=== PATIENT | male | born 1960 | race Caucasian/White ===

== ENCOUNTER → 2016-08-18 | Outpatient (CLI) | payer OTHER ==
[2016-08-18 07:26] LABS: CALCIUM 8.6 mg/dL (8.5-10.1); CREATININE 0.7 mg/dL (0.7-1.3); GFR 117.1; POTASSIUM 3.7 mmol/L (3.5-5.1)
[2016-08-19 05:13] LABS: HEMOGLOBIN A1C 5.3 % (4.8-5.6)
== END | disposition home or self-care (01) ==
LOC: LAB 06:52
PROVIDERS: ATTEND Specialist
DX: E78.2 Mixed hyperlipidemia (principal); R73.01 Impaired fasting glucose
CPT/HCPCS: 36415; 80048; 80061; 83036

== ENCOUNTER → 2017-04-20 | Outpatient (CLI) | payer OTHER ==
[2017-04-20 07:10] LABS: CALCIUM 8.7 mg/dL (8.5-10.1); CREATININE 0.7 mg/dL (0.7-1.3); GFR 117.1; POTASSIUM 3.4 mmol/L (3.5-5.1)
[2017-04-20 21:08] LABS: HEMOGLOBIN A1C 5.1 % (4.8-5.6)
== END | disposition home or self-care (01) ==
LOC: LAB 04-19 06:59
PROVIDERS: ATTEND Specialist
DX: Z12.5 Encounter for screening for malignant neoplasm of prostate (principal); I10 Essential (primary) hypertension; E78.2 Mixed hyperlipidemia; R73.01 Impaired fasting glucose
CPT/HCPCS: 36415; 80048; 80061; 83036; G0103

== ENCOUNTER → 2018-06-07 | Outpatient (CLI) | payer OTHER ==
[2018-06-07 06:53] LABS: CALCIUM 8.8 mg/dL (8.5-10.1); CREATININE 0.6 mg/dL (0.7-1.3); GFR 138.9; POTASSIUM 3.5 mmol/L (3.5-5.1)
== END | disposition home or self-care (01) ==
LOC: LAB 06:31
PROVIDERS: ATTEND Specialist
DX: E78.00 Pure hypercholesterolemia, unspecified (principal)
CPT/HCPCS: 36415; 80048; 80061

== ENCOUNTER 2019-04-04 04:49 | Inpatient (IN) | payer OTHER ==
[~2019-04-04] VITALS: Ht 180.3 cm; Wt 88.9 kg
--- NOTE | 2019-04-04 04:52 | PHYS DOC ---
Adult General Chief Complaint Chief Complaint: ".. I went to bed fine.. and woke up with fever, chills.. and my arm on fire... I think maybe I got an spider bite.. a brown recluse.. bite.. I had a really severe response before.. ended up in the hospital almost a week... " HPI HPI Patient is a 58 year old male who presents with above hx and complaints of insect bite. Patient suspects it is a brown recluse bite. Patient has an area approximately 12 x 12 cm left antecubital area that is swollen and red. There is a central airways and appears to be a bite rigoberto. There is no axillary adenopathy. There is no striations. Patient had a brown recluse bite approximately 6-7 years ago which resulted in a week hospitalization. Patient had a severe reaction to the bite. Was first started on outpatient antibiotics but eventually required admission. Patient does have a large area of scar on his right chest wall from the previous brown recluse bite. Patient was moving some carpet yesterday. Patient thinks it's been approximately 6-7 years since last tetanus update Pt. normally follows with Jose Lawrence. Review of Systems Review of Systems Constitutional: Complaints of fever or chills [] Eyes: Denies change in visual acuity, redness, or eye pain [] HENT: Denies nasal congestion or sore throat [] Respiratory: Denies cough or shortness of breath [] Cardiovascular: No additional information not addressed in HPI [] GI: Denies abdominal pain, nausea, vomiting, bloody stools or diarrhea [] : Denies dysuria or hematuria [] Musculoskeletal: Denies back pain or joint pain [] Integument: Denies rash or skin lesions []. Patient has a 12 x 12 cm area of inflammation left antecubital area. Neurologic: Denies headache, focal weakness or sensory changes [] Endocrine: Denies polyuria or polydipsia [] All other systems were reviewed and found to be within normal limits, except as documented in this note. Family History Family History Noncontributory Current Medications Current Medications See nursing for home medications Allergies Allergies No known drug allergies Physical Exam Physical Exam Constitutional: Well developed, well nourished, moderate acute distress, ill in appearance. [Having obvious rigors and chills . Hypotensive, HENT: Normocephalic, atraumatic, bilateral external ears normal, oropharynx moist, no oral exudates, nose normal. [] Eyes: PERRLA, EOMI, conjunctiva normal, no discharge. Glasses Neck: Normal range of motion, no tenderness, supple, no stridor. [] Cardiovascular: Tachycardia Heart rate regular rhythm, no murmur [] Lungs & Thorax: Bilateral breath sounds equal at apex on auscultation []. Large scar right chest wall from previous Brown recluse bite. Abdomen: Bowel sounds normal, soft, no tenderness, no masses, no pulsatile masses. [] Skin: Warm, dry, [] Area which appears to be cellulitis/insect bite-Brown recluse right antecubital space Back: No tenderness, no CVA tenderness. [] Extremities: No tenderness, no cyanosis, no clubbing, ROM intact, no edema. [] Neurologic: Alert and oriented X 3, normal motor function, normal sensory function, no focal deficits noted. [] Psychologic: Affect anxious, judgement normal, mood normal. [] EKG EKG [] Radiology/Procedures Radiology/Procedures [] Course & Med Decision Making Course & Med Decision Making Pertinent Labs and Imaging studies reviewed. (See chart for details) Patient admitted to - for further eval. and tx. Pt. hx of severe reaction to Brown Recluse-, however may be localized cellulitis. Impression: 1. Suspect Brown Recluse Bite Rt anti-cubital area vs localized cellulitis 2. Leukocytosis 13.5 3. Hyponatremia 128 4. Hypokalemia 3.4 5. Fever and Chills 6. Hypotension [] Dragon Disclaimer Dragon Disclaimer This electronic medical record was generated, in whole or in part, using a voice recognition dictation system. Departure Departure: Disposition: 01 HOME/RESIDENCE PRIOR TO ADM Condition: STABLE Referrals: MYRON ALVRAEZ MD (PCP) Shannon Disclaimer This chart was dictated in whole or in part using Voice Recognition software in a busy, high-work load, and often noisy Emergency Department environment. It may contain unintended and wholly unrecognized errors or omissions. ORE VINCENT MD Apr 04, 2019 04:52
[2019-04-04] MEDS ORDERED: IV NORMAL SALINE 50ML 0 ML ONE (05:10)
[2019-04-04] MEDS ORDERED: cefTRIAXone SODIUM 1 GM VIAL ONE ×2 (05:10→06:55)
[2019-04-04] MEDS ORDERED: SMZ/TMP 800/160MG TABLET. PO ONE (05:30)
[2019-04-04 05:46] LABS: BASO # 0.3 x10^3/uL (0.0-0.2); BASO % 3 % (0-3); CALCIUM 8.3 mg/dL (8.5-10.1); CREATININE 0.7 mg/dL (0.7-1.3); EOS % 0 % (0-3); GFR 116.2; HEMATOCRIT 43.4 % (39.0-53.0); HEMOGLOBIN 15.2 g/dL (13.0-17.5); LYMPH # 0.2 x10^3/uL (1.0-4.8); LYMPH % 2 % (24-48); MEAN CORPUSCULAR HEMOGLOBIN 32 pg (25-35); MEAN CORPUSCULAR HGB CONC 35 g/dL (31-37); MEAN CORPUSCULAR VOLUME 90 fL (79-100); MONO # 0.5 x10^3/uL (0.0-1.1); MONO % 3 % (0-9); NEUT # 12.4 x10^3uL (1.8-7.7); NEUT % 92 % (31-73); PLATELET COUNT 145 x10^3/uL (140-400); POTASSIUM 3.4 mmol/L (3.5-5.1); RED BLOOD COUNT 4.83 x10^6/uL (4.30-5.70); RED CELL DISTRIBUTION WIDTH 12.9 % (11.5-14.5); WHITE BLOOD COUNT 13.5 x10^3/uL (4.0-11.0)
[2019-04-04] MEDS ORDERED: DIPHTH,PERTUSS(ACELL),TET TOX 0.5 ML DISP.SYRIN. VAX IM ONE (06:00)
[2019-04-04 06:43] LABS: SEDIMENTATION RATE 8 (0-15)
[2019-04-04] MEDS ORDERED: ONDANSETRON PF 4 MG/2 ML VIAL. IV PRN (06:45)
[2019-04-04] MEDS ORDERED: IV NORMAL SALINE 50ML 50 ML ONE (06:55)
[2019-04-04] MEDS ORDERED: SODIUM BICARBONATE 50 MEQ/50 ML VIAL. ONE (06:58)
[2019-04-04] MEDS ORDERED: IV RINGERS SOLUTION,LACTATED 1,000 ML IV ONE ×3 (07:00→07:15)
[2019-04-04] MEDS ORDERED: SODIUM BICARB ADULT 8.4% 50 MEQ/50 ML DISP.SYRIN. IV ONE (07:00)
[2019-04-04] MEDS: ACETAMINOPHEN 325 MG TABLET PO PRN ×3 (07:31→18:27)
[2019-04-04] MEDS ORDERED: IPRATRPIUM/ALBUTEROL 0.5/2.5MG 3 ML NEBU. NEB SCH (08:00)
[2019-04-04 09:37] VITALS: BP 112/68
[2019-04-04] MEDS ORDERED: CARV25TA2 PO (09:46)
[2019-04-04] MEDS ORDERED: OMEG-117 PO (09:46)
[2019-04-04] MEDS ORDERED: POTA20TA4 PO (09:46)
[2019-04-04] MEDS ORDERED: TRIA1CAP PO (09:46)
--- NOTE | 2019-04-04 09:53 | NUR ---
The patient, BERNICE SUMNER, 58 y/o, M admitted by LESVIA TATUM MD, was given written information regarding hospital policies, unit procedures and contact persons. Valuables were checked and left at bedside. Patient was admitted from ED to [address] [place] [address] with a diagnosis of cellulitis, leukocytosis, and hyponatremia. Patient has cellulitis in RUE, patient stated " i was fine last night, i went to bed and woke up with red on my arm and fever. I was rolling carpet yesterday and i am concerned it's a possible spider bite." Patient has a history of brown recluse spider bite, occurred 6-7 years ago,on right upper abdomen that required 6 weeks of hospitalization and IV antibiotics. Patient has history of High Blood pressure,back surgery also. Patient is an ex smoker, and drinks alcohol daily stating " i drink about 8 beers a day at home." Patient has a 20g in LAC, Rocephin 1 gm IV was administered in ED. Patient was febrile upon arriving with a temp of 102. oral. Patient is alert and oriented x 4, speech is clear, able to make wants and needs known and able to verbalize understanding of others. No negative moods or behaviors observed. Pleasant and cooperative with staff in all cares. Patient abdomen is slightly distended, firm, active bowel sounds in all 4 quadrants. Non obese. Lungs are CTA, RA, respirations are even and unlabored. No cough or SOA present. Skin is appropriate for age and ethinicity, in tact. Patient face appears slightly flushed light red at this time. Patient is up ad sailaja. Patient is resting in room with call light and fresh fluids at this time.
[2019-04-04] MEDS ORDERED: TRIAMTERENE/HCTZ 37.5/25MG TABLET. PO SCH (10:00)
[2019-04-04 10:02] VITALS: BP 112/68
--- NOTE | 2019-04-04 10:43 | NUR ---
Dr. Clements notified of patient's admission. New orders for Vanc per pharm, Zosyn 3.375 g IV Q 8hours, NS bolus 500 ML , NS at 125ml/hour, Banana Bag Q HS , CIWA protocol received.
[2019-04-04] MEDS ORDERED: IV NORMAL SALINE 500ML 500 ML IV ONE (10:45)
[2019-04-04] MEDS: CARVEDILOL 12.5 MG TABLET PO SCH (10:57)
[2019-04-04] MEDS: POTASSIUM CHLORIDE 20 MEQ TABLET.ER. PO SCH (10:58)
[2019-04-04] MEDS: IV NORMAL SALINE 1,000ML 1,000 ML IV SCH ×2 (10:59→18:45)
[2019-04-04] MEDS: PIPERACILLIN/TAZOBACTAM 3.375 GM in IV NORMAL SALINE 50ML 50 ML IV SCH ×2 (11:00→19:29)
[2019-04-04] MEDS ORDERED: PIPERACILLIN/TAZOBACTAM 3.375 GM in IV NORMAL SALINE 50ML 50 ML IV SCH ×4 (11:00)
[2019-04-04] MEDS ORDERED: VANCOMYCIN 2 GM in IV NORMAL SALINE 500ML 500 ML IV ONE (11:30)
[2019-04-04] MEDS: VANCOMYCIN PER PHARMACY MC PRN (12:23)
--- NOTE | 2019-04-04 12:23 | NUR ---
Pharmacy Vancomycin Dosing Note S:Consulted to monitor and dose vancomycin started 04/04/19. O:BERNICE SUMNER is a 58 year old M with Cellulitis, . Height: 5 feet, 10 inches Weight: 89.468922 kg [place] Body Weight: 73.00 Adjusted Body Weight: 79.64 Dosing Weight: Actual Other Antibiotics: ZOSYN LABS: Last BUN: 8 Last Creatinine: 0.7 Creatinine Clearance: 131 Last WBC: 13.5 Last Procalcitonin: Tmax (past 24 hours): Microbiology: I/O: Drug Levels: Last level: on at Last dose given at Vancomycin Dosing: Loading Dose: 2000 mg x1 Dosing Weight: Actual Target Trough: 10-20 A: Based on: PHYSICIAN REQUEST FOR DOSING P: 1. Begin Vancomycin 1250 mg IV q8h 2. Follow up Trough level on 04/05/19 BEFORE 4TH DOSE 3. Pharmacy will continue to monitor, follow and adjust therapy as needed. CLARICE COLIN, 04/04/19 [id number]
--- NOTE | 2019-04-04 13:20 | NUR ---
Notified Dr. Clements via telephone of patient cellulitis spreading up right upper arm. Admission measurments of area of cellulitis located on the right upper arm were 17.5CM L X 14.6 CM, at 12:40 pm measurments increased to 26 CM L X 17 CM W. New order for hydrocodone 5/325 mg PRN Q 4 HOURS FOR pain were received. Dr. Clements stated he would like to see cellulitis in person before changing course of treatment.
[2019-04-04] MEDS: HYDROcodone/APAP 5/325MG 1 TAB TABLET PO PRN ×2 (13:29→18:27)
[2019-04-04 15:33] VITALS: BP 87/52
--- NOTE | 2019-04-04 16:13 | HP ---
ADMIT DATE: 04/04/2019 HISTORY OF PRESENT ILLNESS: The patient is a 58-year-old male patient who came to the Emergency Room complaining that he went to the bed fine but he woke up this morning with fever, chills and his arm on fire. He thinks that he was bit by a spider, particularly a brown recluse, as he has had before severe response when he was bitten by a brown recluse spider on his abdomen and required about a week of treatment in the hospital. When he arrived to the Emergency Room, he has an area of approximately 12 cm on the left antecubital area swollen and red. There is no axillary lymphadenopathy and no striation. He stated that he had a brown recluse bite approximately 6-7 years ago, which resulted in a week hospitalization, has severe reaction to the bite. He does have a large scar on his right chest wall from the previous brown recluse bite. He was actually moving some cardboard yesterday and he thinks that he might have been bitten there. In the Emergency Room, he was febrile. His temperature went up to 103 degrees Fahrenheit, somewhat tachycardic. His face was flushed, but there was no jaundice, cyanosis or thyromegaly. No jugular venous distention. No lower limb edema. He was extensively investigated. His lab work showed he has leukocytosis with a white cell count of 13,500. His chemistry showed mild hyponatremia and hypokalemia and lactic acid was slightly elevated at 2.3. Blood cultures were ordered and he was started on IV vancomycin and Zosyn and initially received trimethoprim-sulfamethoxazole as well as ceftriaxone and was admitted for further evaluation and treatment. PAST MEDICAL HISTORY: Significant for hypertension, hyperlipidemia, and alcoholism. PAST SURGICAL HISTORY: Significant for back surgery as well as colonoscopy. ALLERGIES: He has no known drug allergies. MEDICATIONS: He is currently on following medications: He is on fish oil 1 capsule twice a day, carvedilol 25 mg once a day, potassium chloride 20 mEq daily, triamterene/hydrochlorothiazide 37.5/25 one tablet once a day. FAMILY HISTORY: He has 2 brothers, older and healthy. His father at the age of 89 because of CVA and its complication. Mother at the age of 64 because of the uterine carcinoma. SOCIAL HISTORY: He is , has no children. He does not smoke; however, he drinks about 8 beers a day, he does not use any drugs. He works in the kitchen. REVIEW OF SYSTEMS: The patient denied any blurring of vision, cataract, glaucoma or macular degeneration. Denied any earache, tinnitus or sensorineural deafness. Denied any nosebleeds, stuffy nose, or postnasal drip. Denied any sore throat, sore tongue, toothache, hoarseness of voice or difficulty swallowing. Denied any nausea, vomiting, diarrhea or constipation. Denied any hematemesis, melena or hematochezia. Denied any dysuria, frequency or hematuria. Denied any chest pain, shortness of breath, orthopnea, paroxysmal nocturnal dyspnea. PHYSICAL EXAMINATION: GENERAL: On arrival to the Emergency Room, he was flushed, but there was no pallor, jaundice, cyanosis or thyromegaly. No jugular venous distension. No lower limb edema. VITAL SIGNS: Her heart rate was 118, blood pressure was 114/60, temperature was 99, respiratory rate was 20, and oxygen saturation was 99%. His temperature went up to 103 degrees Fahrenheit. HEAD, EYES, EARS, NOSE AND THROAT: Showed normocephalic, atraumatic. NECK: Supple. HEART: Normal first and second heart sounds. No gallop, rub or murmur. CHEST: Clear to auscultation. No crepitation or rhonchi. ABDOMEN: Distended, soft, nontender. No guarding or rigidity. No organomegaly. All hernial orifice intact. Bowel sounds normal. NEUROLOGICALLY: He was awake, alert, responding appropriately. All cranial nerves intact. EXTREMITIES: He moves extremities without difficulty. He ambulates without assistance or assistive devices. Examination of the face showed it is markedly flushed, has an area of erythema on the right antecubital fossa extending distally and proximally and it has increased in size since admission, although the intensity of the erythema is much less. LABORATORY DATA: His lab work on admission showed serum sodium of 128, potassium 3.4, chloride 91, bicarbonate 23, anion gap of 14, BUN 8, creatinine 0.7, estimated GFR was 116, glucose was 98, lactic acid was 2.3, calcium was 8.3. CK was 121. His white cell count was 13,500, hemoglobin 15, hematocrit 43, MCV 90, and platelet count of 145,000. ASSESSMENT: Right upper extremity cellulitis, questionable brown recluse bite. My plan is to switch him to Zosyn and vancomycin. We will arrange for him a PICC line. Continue treatment. I will discontinue his triamterene/hydrochlorothiazide given his severe hyponatremia, continue obviously with alcohol withdrawal protocol as he is drinking heavily. LESVIA TATUM MD DR: ZULLY/xenia JOB#: [id number] / [id number]
--- NOTE | 2019-04-04 16:21 | NUR ---
Patient temp at 1500 was 101 oral. Acetaminophen administered per order for fever. Cold wash clothes applied to patients forehead and icepacks applied to back of patients neck. Rechecked temperature 30 minutes later, Temp was 99.0 oral.
--- NOTE | 2019-04-04 17:11 | NUR ---
Order Verified Yes Consent signed Yes Previous PICC placement No Past Medical/Surgical history and current diagnosis reviewed Yes Patient Medical /Surgical History Related to PICC line placement None Special considerations for PICC line placement Infections PICC placement indication lobsterman antibiotic usage, Name of PICC Nurse Genoveva Limon RN
--- NOTE | 2019-04-04 17:13 | NUR ---
Procedure: Following complete explanation of the PICC procedure including the indications, risks, and potential complications, informed consent was obtained. The possibility for infection was discussed along with signs, symptoms, and prevention. All the patient's questions were answered. IV Device Protocol was used. Written and verbal patient education was provided. Hand hygiene performed. Standardized central line checklist was utilized. The patient had cellulitis in the right arm so the left arm was used. The patient was placed in the supine position, the left arm was prepped with chlorhexidine and patient draped with maximum sterile barrier. 1 mL 1% lidocaine was infiltrated into the skin to provide local anesthesia. A thorough assessment of the left upper extremity completed. Using real-time ultrasound guidance and standardized micro puncture set, the basilic vein was punctured and a peel away sheath was placed using the modified Seldinger technique. A tip location device was used to ensure adequate catheter placement. The catheter was secured using a securement device and an antimicrobial patch was applied directly on the insertion site followed by a transparent dressing. The purple lumen withdrew blood and flushed without resistance. Patient tolerated the procedure without apparent complication. A single Lumen Power PICC placement successful and uncomplicated. Placement verified by EKG tip confirmation system with green p wave and nohemy observed. Tip located in the low SVC per 3CG Complications: none
--- NOTE | 2019-04-04 18:45 | NUR ---
New order for 600mg Ibuprofen received verbally from Dr. Clements for dx of fever.
[2019-04-04 19:43] VITALS: BP 136/76
[2019-04-04] MEDS: IBUPROFEN 600 MG TABLET. PO PRN (20:04)
[2019-04-04] MEDS: VANCOMYCIN 1.25 GM in IV NORMAL SALINE 250ML 250 ML IV SCH (20:04)
[2019-04-04] MEDS: OMEGA-3 FATTY ACIDS/FISH OIL 1,000 MG CAPSULE. PO SCH (20:04)
[2019-04-04] MEDS: MVI, ADULT NO.4 WITH VIT K 10 ML, FOLIC ACID INJ 1 MG, THIAMINE INJ 100 MG in IV NORMAL... IV SCH ×4 (20:05)
[2019-04-04] MEDS ORDERED: SMZ/TMP 800/160MG TABLET. PO SCH (21:00)
[2019-04-04 22:26] VITALS: BP 136/74
[2019-04-05] MEDS: IV NORMAL SALINE 1,000ML 1,000 ML IV SCH ×2 (02:45→10:45)
[2019-04-05] MEDS: PIPERACILLIN/TAZOBACTAM 3.375 GM in IV NORMAL SALINE 50ML 50 ML IV SCH ×3 (02:55→18:20)
[2019-04-05] MEDS: VANCOMYCIN 1.25 GM in IV NORMAL SALINE 250ML 250 ML IV SCH ×3 (05:00→20:25)
[2019-04-05 05:14] VITALS: BP 145/72
[2019-04-05 07:00] LABS: BASO % 0 % (0-3); EOS # 0.1 x10^3/uL (0.0-0.7); EOS % 1 % (0-3); HEMATOCRIT 38.4 % (39.0-53.0); HEMOGLOBIN 13.3 g/dL (13.0-17.5); LYMPH # 0.1 x10^3/uL (1.0-4.8); LYMPH % 1 % (24-48); MEAN CORPUSCULAR HEMOGLOBIN 32 pg (25-35); MEAN CORPUSCULAR HGB CONC 35 g/dL (31-37); MEAN CORPUSCULAR VOLUME 92 fL (79-100); MONO # 0.3 x10^3/uL (0.0-1.1); MONO % 3 % (0-9); NEUT # 9.7 x10^3uL (1.8-7.7); NEUT % 95 % (31-73); PLATELET COUNT 115 x10^3/uL (140-400); RED CELL DISTRIBUTION WIDTH 13.3 % (11.5-14.5); WHITE BLOOD COUNT 10.3 x10^3/uL (4.0-11.0)
[2019-04-05 07:14] LABS: ALBUMIN 2.8 g/dL (3.4-5.0); ALBUMIN/GLOBULIN RATIO 0.8 (1.0-1.7); CALCIUM 7.4 mg/dL (8.5-10.1); CREATININE 0.8 mg/dL (0.7-1.3); GFR 99.6; TOTAL BILIRUBIN 0.7 mg/dL (0.2-1.0); TOTAL PROTEIN 6.2 g/dL (6.4-8.2)
[2019-04-05 07:24] LABS: POTASSIUM 2.7 mmol/L (3.5-5.1)
[2019-04-05] MEDS: POTASSIUM CHLORIDE 10MEQ 100 ML IV SCH ×4 (07:53→10:30)
[2019-04-05] MEDS: IBUPROFEN 600 MG TABLET. PO PRN ×2 (07:53→20:27)
[2019-04-05] MEDS: POTASSIUM CHLORIDE 20 MEQ TABLET.ER. PO SCH (07:53)
[2019-04-05] MEDS: CARVEDILOL 12.5 MG TABLET PO SCH (07:53)
[2019-04-05] MEDS: OMEGA-3 FATTY ACIDS/FISH OIL 1,000 MG CAPSULE. PO SCH ×2 (07:54→20:26)
[2019-04-05] MEDS ORDERED: CONTRAST GIVEN MC PRN (09:15)
[2019-04-05] MEDS ORDERED: IOHEXOL 300 MG/ML 75 ML VIAL. IV ONE (09:15)
--- NOTE | 2019-04-05 10:25 | RAD ---
Examination: CT right upper extremity with IV contrast HISTORY: History of abscess COMPARISON: None available TECHNIQUE: Axial CT images of the right upper extremity was performed with IV contrast. Coronal and sagittal reformats are performed Exposure: One or more of the following individualized dose reduction techniques were utilized for this examination: 1. Automated exposure control 2. Adjustment of the mA and/or kV according to patient size 3. Use of iterative reconstruction technique FINDINGS: The alignment of the humerus, radius, ulna grossly appears unremarkable. There is diffuse fat stranding identified in the subcutaneous tissue extending from the upper arm medially and extending into the forearm medially anteriorly and posteriorly likely diffuse edema/cellulitis. No obvious focal fluid collection identified to suggest an abscess. IMPRESSION: 1. Diffuse fat stranding identified in the subcutaneous tissue in the upper abdomen extending into the forearm distally likely diffuse edema or cellulitis/infection. Correlate clinically. Electronically signed by: Nando Blanco MD (04/05/2019 10:22 AM) [id number]
--- NOTE | 2019-04-05 10:42 | NUR ---
Dr. Clements notified via telephone of patient's CT results. Continue to monitor at this time, no new orders. Dr. Clements stated he will respond at bedside and consult with I/D to decide further treatment. Patient and patient's made aware.
[2019-04-05 12:49] LABS: VANC TR 10.5 mcg/mL (10.0-20.0)
[2019-04-05] MEDS: HYDROcodone/APAP 5/325MG 1 TAB TABLET PO PRN (13:56)
[2019-04-05] MEDS ORDERED: POTASSIUM CHLORIDE 20 MEQ TABLET.ER. PO ONE (14:00)
[2019-04-05] MEDS: VANCOMYCIN PER PHARMACY MC PRN ×2 (14:06→14:07)
--- NOTE | 2019-04-05 14:08 | NUR ---
Pharmacy Vancomycin Dosing Note S:Consulted to monitor and dose vancomycin started 04/04/19. O:BERNICE SUMNER is a 58 year old M with Cellulitis, . Height: 5 feet, 10 inches Weight: 88.467242 kg [place] Body Weight: 73.00 Adjusted Body Weight: 79.64 Dosing Weight: Actual Other Antibiotics: ZOSYN LABS: Last BUN: 8 Last Creatinine: 0.8 Creatinine Clearance: 114.10 Last WBC: 10.3 Last Procalcitonin: Tmax (past 24 hours): Microbiology: I/O: Drug Levels: Last level: 10.5 on 04/05/19 at 1225 Last dose given at Vancomycin Dosing: Loading Dose: 2000 mg x1 Dosing Weight: Actual Target Trough: 10-20 A: Based on: THE ABOVE THERAPEUTIC THROUGH P: 1. Continue Vancomycin 1250 mg IV q8h 2. Follow up Trough level as needed 3. Pharmacy will continue to monitor, follow and adjust therapy as needed. PIERRE KAYE [facility] [place], 04/05/19 0408
[2019-04-05 14:37] VITALS: BP 143/83
[2019-04-05] MEDS: POTASSIUM CL 40MEQ IN 0.9%NACL 1,000 ML IV SCH (16:51)
[2019-04-05] MEDS: MVI, ADULT NO.4 WITH VIT K 10 ML, FOLIC ACID INJ 1 MG, THIAMINE INJ 100 MG in IV NORMAL... IV SCH ×4 (20:26)
[2019-04-05 21:00] VITALS: BP 163/90
[2019-04-05] MEDS: LACTOBACILLUS RHAMNOSUS GG 1 CAPSULE. PO SCH (21:27)
[2019-04-05 22:46] VITALS: BP 149/79
--- NOTE | 2019-04-06 01:09 | PN ---
DATE: 04/05/2019 PROGRESS NOTE SUBJECTIVE: The patient is resting slightly propped up in bed, in no apparent respiratory distress. He definitely looks better than yesterday. He is just flushed, although slightly more swollen and the area of erythema is slightly bigger. His blood pressure is stable. His white cell count is down. So far, his blood culture showed no growth. PHYSICAL EXAMINATION: GENERAL: When I examined him, he looked well and was clearly in no apparent respiratory distress. No pallor, jaundice, cyanosis, or thyromegaly. No jugular venous distention. No limb edema. VITAL SIGNS: His heart rate was 94, blood pressure was 143/83, temperature 99, respiratory rate was 20, and oxygen saturation was 93% on room air. HEAD, EYES, EARS, NOSE AND THROAT: Showed normocephalic, atraumatic. EXTREMITIES: The examination of the right upper extremity compared to left definitely showed it is more swollen and with erythema mostly on the inner side. LABORATORY DATA: Showed a white cell count 10,000, hemoglobin 13, hematocrit 38, MCV 92, and platelet count ____. His chemistry showed a serum sodium 133, potassium 3.3, chloride 98, bicarbonate 25, anion gap of 10, BUN 6, and creatinine 0.8. ASSESSMENT: 1. Right upper extremity cellulitis. 2. Hypertension, hyperlipidemia ____. Dictation Ends Here. LESVIA TATUM MD DR: ZULLY/xenia JOB#: [id number] / [id number]
[2019-04-06] MEDS: PIPERACILLIN/TAZOBACTAM 3.375 GM in IV NORMAL SALINE 50ML 50 ML IV SCH ×3 (02:46→19:50)
[2019-04-06] MEDS: POTASSIUM CL 40MEQ IN 0.9%NACL 1,000 ML IV SCH (04:20)
[2019-04-06] MEDS: VANCOMYCIN 1.25 GM in IV NORMAL SALINE 250ML 250 ML IV SCH ×3 (04:34→21:05)
[2019-04-06 05:29] VITALS: BP 162/92
[2019-04-06 07:43] LABS: HEMATOCRIT 36.9 % (39.0-53.0); HEMOGLOBIN 12.4 g/dL (13.0-17.5); RED BLOOD COUNT 3.95 x10^6/uL (4.30-5.70); RED CELL DISTRIBUTION WIDTH 13.1 % (11.5-14.5); WHITE BLOOD COUNT 9.7 x10^3/uL (4.0-11.0)
[2019-04-06 07:52] LABS: ALBUMIN 2.6 g/dL (3.4-5.0); ALBUMIN/GLOBULIN RATIO 0.7 (1.0-1.7); CALCIUM 7.7 mg/dL (8.5-10.1); CREATININE 0.7 mg/dL (0.7-1.3); GFR 116.2; TOTAL BILIRUBIN 0.4 mg/dL (0.2-1.0); TOTAL PROTEIN 6.1 g/dL (6.4-8.2)
[2019-04-06] MEDS: LACTOBACILLUS RHAMNOSUS GG 1 CAPSULE. PO SCH ×2 (08:43→19:50)
[2019-04-06] MEDS: POTASSIUM CHLORIDE 20 MEQ TABLET.ER. PO SCH (08:43)
[2019-04-06] MEDS: OMEGA-3 FATTY ACIDS/FISH OIL 1,000 MG CAPSULE. PO SCH ×2 (08:43→19:51)
[2019-04-06] MEDS: CARVEDILOL 12.5 MG TABLET PO SCH (08:43)
[2019-04-06] MEDS ORDERED: POTASSIUM CHLORIDE 20 MEQ TABLET.ER. PO ONE ×2 (08:45→17:00)
[2019-04-06] MEDS: IBUPROFEN 600 MG TABLET. PO PRN (09:39)
[2019-04-06] MEDS: diphenhydrAMINE 50 MG/ML VIAL IVP PRN ×2 (09:39→19:50)
[2019-04-06 10:52] VITALS: BP 165/82
[2019-04-06 15:37] VITALS: BP 172/96
[2019-04-06 16:45] LABS: CREATININE 0.8 mg/dL (0.7-1.3); GFR 99.6; POTASSIUM 3.3 mmol/L (3.5-5.1)
[2019-04-06] MEDS ORDERED: IOHEXOL 300 MG/ML 75 ML VIAL. IV ONE (17:00)
[2019-04-06] MEDS: chlordiazePOXIDE HCL 25 MG CAPSULE PO PRN (17:40)
[2019-04-06 19:21] VITALS: BP 191/104
[2019-04-06] MEDS: HYDROcodone/APAP 5/325MG 1 TAB TABLET PO PRN (19:51)
[2019-04-06 20:27] LABS: VANC TR 12.4 mcg/mL (10.0-20.0)
[2019-04-06 22:27] VITALS: BP 154/54
--- NOTE | 2019-04-06 23:00 | NUR ---
Pt with elevated BP. Pt anxious and had higher CIWA score. Pt refused Ativan, stating that he "felt roofied." but was agreeable to taking Benadryl and Lortab to calm down. Pt's BP recheck was much improved and pt felt relaxed. Pt had repeat CT of right arm done, no new findings. Pt had normal Vanco trough at 12.4.
[2019-04-07] VITALS (7 sets, daily range): BP systolic 143–186; BP diastolic 81–107
--- NOTE | 2019-04-07 01:37 | PN ---
DATE: 04/06/2019 SUBJECTIVE: The patient is resting slightly propped up in bed, in no apparent respiratory distress. He is not flushed anymore. He is afebrile. However, his right upper extremity continued to be swollen. When I examined him, he looked well and was clearly in no apparent respiratory distress. The nursing staff stated that his potassium was low and blood pressure is up higher, like now 172/96. He did not like the Ativan. PHYSICAL EXAMINATION: GENERAL: When I examined him, he looked well. VITAL SIGNS: Her heart rate was 88, blood pressure was 72/96, temperature 98.7, respiratory rate 20, and oxygen saturation was 95% on room air. EXTREMITIES: His right upper extremity is definitely more swollen and red compared to the left. The rest of clinical exam is stable. His intake over the last 24 hours was 3413, no output was recorded. LABORATORY DATA: His lab work this morning showed a white cell count is down to 9700, hemoglobin 12, hematocrit 36, MCV 93, and platelet count of 77,000. His chemistry showed a serum sodium of 136, potassium 3, chloride 101, bicarbonate 24, anion gap of 11, BUN 4, creatinine was 0.7, estimated GFR was 116 mL per minute, his glucose was 99, calcium was 7.7. Total bilirubin, AST, ALT, alkaline phosphatase were normal. Total protein was 6.1, albumin was 2.6. His vancomycin trough level was 10.5. ASSESSMENT: 1. Right upper extremity cellulitis. 2. Hypertension. 3. Hyperlipidemia. 4. Alcoholism. 5. Hypokalemia. 6. Thrombocytopenia. PLAN: I would discontinue his IV fluid and discontinue also the banana bag and start him on oral vitamins and monitor his lab work. We will also arrange for him to have a repeat CT scan of the upper extremity to see if there is any drainable fluid. LESVIA TATUM MD DR: ZULLY/xenia JOB#: [id number] / [id number]
--- NOTE | 2019-04-07 02:29 | RAD ---
CT right upper extremity shoulder to wrist with contrast PQRS statement: CT scans at this facility use dose reduction including either automated exposure control, iterative reconstructions, and /or weight based radiation dosing via mA and kV modification when appropriate to reduce radiation dose to as low as reasonably achievable. Contrast: 75 mL Omnipaque 300 intravenous contrast. HISTORY: Right upper extremity worsening swelling. FINDINGS: Patent contrast enhancement of the vessels. There is expansile circumferential subcutaneous edema throughout the upper extremity from the mid humerus down to the hand with very mild edema at the upper humerus. No rim-enhancing fluid collection or enhancing mass. No intramuscular fluid or fascial fluid or enhancement to suggest myositis or fasciitis. Mild chronic ossicle at the medial humeral epicondyle likely due to chronic tendinitis or an old tendon injury. No fracture or dislocation of the upper extremity at the humerus, radius and ulna. No lytic or sclerotic bone lesion or bone destruction or periosteal reaction to suggest infection. IMPRESSION: Diffuse expansile soft tissue edema. No abscess or mass evident. No acute osseous injury. Electronically signed by: Alejandro Kaiser MD (04/07/2019 2:26 AM) [id number]
[2019-04-07] MEDS: PIPERACILLIN/TAZOBACTAM 3.375 GM in IV NORMAL SALINE 50ML 50 ML IV SCH ×3 (03:13→19:45)
[2019-04-07] MEDS: diphenhydrAMINE 50 MG/ML VIAL IVP PRN (03:13)
[2019-04-07] MEDS: chlordiazePOXIDE HCL 25 MG CAPSULE PO PRN ×3 (03:44→16:08)
[2019-04-07] MEDS: VANCOMYCIN 1.25 GM in IV NORMAL SALINE 250ML 250 ML IV SCH (04:41)
[2019-04-07] MEDS: HYDROcodone/APAP 5/325MG 1 TAB TABLET PO PRN (05:40)
[2019-04-07 07:54] LABS: HEMATOCRIT 35.7 % (39.0-53.0); HEMOGLOBIN 12.1 g/dL (13.0-17.5); RED BLOOD COUNT 3.82 x10^6/uL (4.30-5.70)
[2019-04-07 08:11] LABS: ALBUMIN 2.6 g/dL (3.4-5.0); ALBUMIN/GLOBULIN RATIO 0.7 (1.0-1.7); CALCIUM 7.9 mg/dL (8.5-10.1); CREATININE 0.8 mg/dL (0.7-1.3); GFR 99.6; TOTAL BILIRUBIN 0.7 mg/dL (0.2-1.0); TOTAL PROTEIN 6.5 g/dL (6.4-8.2)
[2019-04-07] MEDS: FOLIC ACID 1 MG TABLET PO SCH (08:29)
[2019-04-07] MEDS: OMEGA-3 FATTY ACIDS/FISH OIL 1,000 MG CAPSULE. PO SCH ×2 (08:29→21:21)
[2019-04-07] MEDS: POTASSIUM CHLORIDE 20 MEQ TABLET.ER. PO SCH ×3 (08:29→21:22)
[2019-04-07] MEDS: CARVEDILOL 12.5 MG TABLET PO SCH (08:29)
[2019-04-07] MEDS: PRENATAL MULTIVITAMIN TABLET. PO SCH (08:30)
[2019-04-07] MEDS: LACTOBACILLUS RHAMNOSUS GG 1 CAPSULE. PO SCH ×2 (08:30→21:21)
[2019-04-07] MEDS: THIAMINE 100 MG TABLET. PO SCH (08:30)
[2019-04-07 09:22] LABS: POTASSIUM 2.9 mmol/L (3.5-5.1)
[2019-04-07] MEDS: POTASSIUM BICARB 20 MEQ EFFERVESCENT TABLET. FT SCH ×2 (09:30→13:30)
[2019-04-07] MEDS ORDERED: POTASSIUM BICARB 20 MEQ EFFERVESCENT TABLET. PEG ONE ×2 (10:15→11:30)
[2019-04-07] MEDS: VANCOMYCIN PER PHARMACY MC PRN (10:41)
--- NOTE | 2019-04-07 10:43 | NUR ---
Pt K+ Level 04/07/19 2.7. Notified Provider of low potassium. Gave 40 mEQu K+ at 0930, will give dose again at [address] orders. Will continue to monitor and assess.
--- NOTE | 2019-04-07 10:46 | NUR ---
Pharmacy Vancomycin Dosing Note S:Consulted to monitor and dose vancomycin started 04/04/19. O:BERNICE SUMNER is a 58 year old M with Cellulitis, . Height: 5 feet, 11 inches Weight: 88.264760 kg [place] Body Weight: 75.30 Adjusted Body Weight: 81.02 Dosing Weight: Actual Other Antibiotics: ZOSYN LABS: Last BUN: 13 Last Creatinine: 0.8 Creatinine Clearance: 114.10 Last WBC: 11.0 Drug Levels: Last level: 12.4 on 04/06/19 at 2030 Last dose given at Vancomycin Dosing: Loading Dose: 2000 mg x1 Dosing Weight: Actual Target Trough: 10-20 A: Based on: Trough P: 1. Continue Vancomycin 1250 mg IV q8h 2. Follow up Trough level as needed 3. Pharmacy will continue to monitor, follow and adjust therapy as needed. RODGER BERMUDEZ, 04/07/19 1046
--- NOTE | 2019-04-07 11:26 | NUR ---
Pt BP at 1100 168/105. Gave Clonidine and Ativan PO as ordered. Will continue to monitor and assess.
--- NOTE | 2019-04-07 13:24 | NUR ---
BP at 1300 143/81, Heart Rate 96. Pt is resting. Will continue to monitor and assess.
[2019-04-07] MEDS ORDERED: LOPERAMIDE 2 MG CAPSULE PO ONE (15:00)
--- NOTE | 2019-04-07 15:22 | PN ---
DATE: 04/07/2019 SUBJECTIVE: The patient is resting slightly propped up in bed, in no apparent distress. On questioning him, he complains of pain only when he tries to bend his right elbow or put pressure on his right arm. Otherwise he has no pain. Unfortunately, the redness and swelling has extended mostly distally. I did a CT scan of the upper extremity, which showed basically again diffuse expansile soft tissue edema. No abscess or mass is evident. No acute osseous injury. He is afebrile. His white cell count is coming down. In fact, his white cell count was 13,500, now 11,000. I did speak with Dr. Thornton, the Infectious Disease specialist who recommended switching his vancomycin to Zyvox and continue for a few more days. His blood cultures are so far negative. PHYSICAL EXAMINATION: GENERAL: When I examined him, he looked well, had no more flushing and there is no pallor, jaundice, cyanosis or thyromegaly. No jugular venous distention. No lower limb edema. VITAL SIGNS: Her heart rate was 81, blood pressure was 140/90, temperature 98.1, respiratory rate was 20 and oxygen saturation was 96%. HEAD, EYES, EARS, NOSE AND THROAT: Normocephalic, atraumatic. NECK: Supple. HEART: Showed normal first and second heart sounds with no gallop or murmur. CHEST: Clear to auscultation. No crepitation or rhonchi. ABDOMEN: Distended, soft, nontender. No guarding or rigidity. No organomegaly. All hernial orifices intact. Bowel sounds normal. NEUROLOGIC: He was sleepy, but arousable. All cranial nerves intact. EXTREMITIES: He moves extremities without difficulty. His right upper extremity is more swollen as compared to the left upper extremity. His intake over the last 24 hours was 6400, no output was recorded. LABORATORY DATA: His lab work this morning showed white cell count of 11,000, hemoglobin 12, hematocrit 35, MCV 93 and platelet count of 94,000. His chemistry showed serum sodium 137, potassium 2.9, chloride 101, bicarbonate 23, anion gap of 13, BUN 4, creatinine 0.8, estimated GFR was 99 mL per minute. His glucose was 91, calcium was 7.9. Total bilirubin, AST, ALT, alkaline phosphatase were normal. Total protein was 6.5, albumin was 2.6. Apparently, the patient had multiple episodes of loose bowel movement and therefore we sent stool for C. diff. ASSESSMENT: Right upper extremity cellulitis with worsening erythema and swelling of the soft tissue. I did speak with Dr. Thornton, who recommended discontinuing vancomycin and starting Zyvox. Hypokalemia, dahl which he is receiving 40 mEq every 3 hours. We will check his potassium again this afternoon and we will continue with IV Zosyn, continue with alcohol withdrawal protocol and we will start him oral vancomycin if Clostridium difficile is positive. LESVIA TATUM MD DR: ZULLY/xenia JOB#: [id number] / [id number]
[2019-04-07 17:11] LABS: CALCIUM 8.5 mg/dL (8.5-10.1); CREATININE 0.8 mg/dL (0.7-1.3); GFR 99.6; POTASSIUM 3.8 mmol/L (3.5-5.1)
[2019-04-07] MEDS: cloNIDine HCL 0.1 MG TABLET PO PRN ×2 (19:45→22:57)
[2019-04-08] MEDS: PIPERACILLIN/TAZOBACTAM 3.375 GM in IV NORMAL SALINE 50ML 50 ML IV SCH ×3 (03:30→19:36)
[2019-04-08] MEDS: cloNIDine HCL 0.1 MG TABLET PO PRN ×2 (03:34→06:10)
[2019-04-08 05:31] VITALS: BP 172/102
[2019-04-08 07:39] VITALS: BP 183/108
--- NOTE | 2019-04-08 07:40 | NUR ---
Pts BP recheck after clonidine still showed patients BP at 183/108. Per nurse who had him yesterday, the librium worked well to help his BP. Trying that and will give his schedule meds to him. Patient is alert and oriented x4, pain only when he bends his arms. No has some sores on his arm that were not there yesterday. States the firey color is better than yesterday, arm is still very swollen. Pt in isolation as we rule out cdiff. RN educated patient on these precautions, c-diff and the change in antibiotics to help infection. Pt verbalized understanding. WCTM.
[2019-04-08] MEDS: chlordiazePOXIDE HCL 25 MG CAPSULE PO PRN ×3 (07:47→19:37)
[2019-04-08] MEDS: POTASSIUM CHLORIDE 20 MEQ TABLET.ER. PO SCH ×3 (08:21→19:37)
[2019-04-08] MEDS: FOLIC ACID 1 MG TABLET PO SCH (08:21)
[2019-04-08] MEDS: CARVEDILOL 12.5 MG TABLET PO SCH ×2 (08:22→19:39)
[2019-04-08] MEDS: OMEGA-3 FATTY ACIDS/FISH OIL 1,000 MG CAPSULE. PO SCH ×2 (08:22→19:37)
[2019-04-08] MEDS: THIAMINE 100 MG TABLET. PO SCH (08:22)
[2019-04-08] MEDS: LACTOBACILLUS RHAMNOSUS GG 1 CAPSULE. PO SCH ×2 (08:22→19:37)
[2019-04-08] MEDS: PRENATAL MULTIVITAMIN TABLET. PO SCH (08:25)
[2019-04-08 10:56] VITALS: BP 166/88
[2019-04-08 14:45] VITALS: BP 167/96
[2019-04-08 14:51] LABS: HEMOGLOBIN 12.3 g/dL (13.0-17.5); RED BLOOD COUNT 3.89 x10^6/uL (4.30-5.70); RED CELL DISTRIBUTION WIDTH 13.5 % (11.5-14.5); WHITE BLOOD COUNT 8.9 x10^3/uL (4.0-11.0)
[2019-04-08 16:13] LABS: CALCIUM 8.4 mg/dL (8.5-10.1)
[2019-04-08 16:16] LABS: ALBUMIN 2.7 g/dL (3.4-5.0); ALBUMIN/GLOBULIN RATIO 0.7 (1.0-1.7); POTASSIUM 3.5 mmol/L (3.5-5.1); TOTAL BILIRUBIN 0.3 mg/dL (0.2-1.0); TOTAL PROTEIN 6.7 g/dL (6.4-8.2)
[2019-04-08 19:39] VITALS: BP 164/89
--- NOTE | 2019-04-08 22:01 | PN ---
DATE: 04/08/2019 SUBJECTIVE: The patient is resting slightly propped up in bed, in no apparent distress. He is afebrile. His blood pressure continued to be somewhat high. The right upper extremity swelling and redness is definitely much improved. PHYSICAL EXAMINATION: GENERAL: When I saw him today, he looked well and was clearly in no apparent respiratory distress. No pallor, jaundice, cyanosis or thyromegaly. No jugular venous distension. No lower limb edema. VITAL SIGNS: His heart rate was 88, blood pressure was 195/100, temperature 98.6, respiratory rate was 18 and oxygen saturation was 97%. HEAD, EYES, EARS, NOSE AND THROAT: Showed normocephalic, atraumatic. NECK: Supple. CARDIAC: Normal first and second heart sounds. No gallop or murmur. CHEST: Clear to auscultation. No crepitation or rhonchi. ABDOMEN: Distended, soft, nontender. No guarding or rigidity. No organomegaly. All hernial orifices intact. Bowel sounds normal. NEUROLOGIC: He was awake, alert, responding appropriately. All cranial nerves intact. He moves extremities without difficulty. He ambulates without assistance or assistive device. EXTREMITIES: His right upper extremity swelling and redness is definitely much improved. ASSESSMENT: 1. Right upper extremity cellulitis. The erythema and swelling has definitely much improved. 2. Hypokalemia, improved. 3. Hypertension, likely the patient is in withdrawal and we need to continue with alcohol withdrawal protocol. 4. Diarrhea for which stool was sent for C. diff toxin, the results were still negative. LESVIA TATUM MD DR: ZULLY/xenia JOB#: [id number] / [id number]
[2019-04-08 22:06] VITALS: BP 161/92
[2019-04-09] MEDS: chlordiazePOXIDE HCL 25 MG CAPSULE PO PRN (01:49)
[2019-04-09] MEDS: cloNIDine HCL 0.1 MG TABLET PO PRN (01:50)
[2019-04-09] MEDS: PIPERACILLIN/TAZOBACTAM 3.375 GM in IV NORMAL SALINE 50ML 50 ML IV SCH ×2 (02:50→11:30)
[2019-04-09 05:45] VITALS: BP 162/87
[2019-04-09] MEDS: FOLIC ACID 1 MG TABLET PO SCH (08:11)
[2019-04-09] MEDS: POTASSIUM CHLORIDE 20 MEQ TABLET.ER. PO SCH ×2 (08:12→13:02)
[2019-04-09] MEDS: PRENATAL MULTIVITAMIN TABLET. PO SCH (08:12)
[2019-04-09] MEDS: OMEGA-3 FATTY ACIDS/FISH OIL 1,000 MG CAPSULE. PO SCH (08:13)
[2019-04-09] MEDS: THIAMINE 100 MG TABLET. PO SCH (08:13)
[2019-04-09] MEDS: CARVEDILOL 12.5 MG TABLET PO SCH (08:13)
[2019-04-09] MEDS: LACTOBACILLUS RHAMNOSUS GG 1 CAPSULE. PO SCH (08:13)
[2019-04-09 09:29] LABS: BASO # 0.1 x10^3/uL (0.0-0.2); BASO % 1 % (0-3); EOS # 0.2 x10^3/uL (0.0-0.7); EOS % 4 % (0-3); HEMATOCRIT 38.3 % (39.0-53.0); HEMOGLOBIN 12.7 g/dL (13.0-17.5); LYMPH # 0.6 x10^3/uL (1.0-4.8); LYMPH % 10 % (24-48); MEAN CORPUSCULAR HEMOGLOBIN 31 pg (25-35); MEAN CORPUSCULAR HGB CONC 33 g/dL (31-37); MEAN CORPUSCULAR VOLUME 94 fL (79-100); MONO # 0.8 x10^3/uL (0.0-1.1); MONO % 12 % (0-9); NEUT # 5.1 x10^3uL (1.8-7.7); NEUT % 74 % (31-73); PLATELET COUNT 138 x10^3/uL (140-400); RED BLOOD COUNT 4.09 x10^6/uL (4.30-5.70); RED CELL DISTRIBUTION WIDTH 13.6 % (11.5-14.5); WHITE BLOOD COUNT 6.8 x10^3/uL (4.0-11.0)
[2019-04-09 09:41] LABS: ALBUMIN 2.8 g/dL (3.4-5.0); ALBUMIN/GLOBULIN RATIO 0.7 (1.0-1.7); CALCIUM 8.2 mg/dL (8.5-10.1); CREATININE 0.9 mg/dL (0.7-1.3); POTASSIUM 3.7 mmol/L (3.5-5.1); TOTAL BILIRUBIN 0.3 mg/dL (0.2-1.0); TOTAL PROTEIN 6.9 g/dL (6.4-8.2)
[2019-04-09 11:18] VITALS: BP 142/86
--- NOTE | 2019-04-09 14:34 | NUR ---
Discharge Note: BERNICE SUMNER [address] Discharge instructions and discharge home medications reviewed with Patient and a copy given. All questions have been answered and understanding verbalized. The following instructions and handouts were given: Cellulitis Discontinued lines and drains: PICC IN LUE D/C PER ORDER. Patient discharged to home with present at bed side during the time of discharge.
--- NOTE | 2019-04-09 19:18 | DS ---
DATE OF DISCHARGE: HOSPITAL COURSE: The patient is a 58-year-old male patient, who was admitted with redness and swelling on the inner aspect of right antecubital fossa and that has progressed. He felt that he has spider bite; however, he did not see anyone and we treated him with IV vancomycin and Zosyn initially. As his swelling and redness has worsened, we discussed the presentation with Dr. Thornton, who recommended discontinuing vancomycin and starting Zyvox and he did actually well. The swelling is subsiding as well as the erythema; however, he has what looks like a petechial rash on the inner aspect of the right forearm. Although, his platelet count actually is recovering, ____ was trending down to about 77 from 145 and they have recovered back today to 138. Obviously, his blood pressure was high, probably is a manifestation of alcohol withdrawal, as he drinks about 8 cans of beer every day. We did treat him with a banana bag and alcohol withdrawal protocol and has remained hemodynamically stable. His white cell count came down steadily from 13,500 to down to 6800. A decision was made to discharge him home to continue treatment with the oral Zyvox and clindamycin. While in the hospital, he did develop diarrhea, but his stool for C. diff was negative. PHYSICAL EXAMINATION: GENERAL: When I saw him today, he was sitting on the edge of the bed comfortably in no apparent distress. No pallor, jaundice, cyanosis, or thyromegaly. No jugular venous distension. No limb edema. VITAL SIGNS: His heart rate was 78, the blood pressure of 142/86, temperature of 97.8, respiratory rate 20, and his oxygen saturation was 86% on room air. HEAD, EYES, EARS, NOSE, AND THROAT: Showed normocephalic and atraumatic. NECK: Supple. HEART: Showed normal first and second heart sounds. No gallop or murmur. CHEST: Clear to auscultation. No crepitation or rhonchi. ABDOMEN: Distended, soft, and nontender. NEUROLOGIC: He was awake, alert, and responding appropriately. All cranial nerves are intact. He moves extremities without difficulty. His right upper extremity continued to be slightly more swollen than the left with area of what looks like petechiae on the medial aspect. His intake over the last 24 hours was 2313 and output was recorded ____. LABORATORY WORK: Showed the white cell count of 6800, hemoglobin 12.7, hematocrit 38, MCV 94, and platelet count of 138,000. Serum sodium is 135, potassium is 3.7, chloride 104, bicarbonate 25, anion gap of 6, BUN 7, and creatinine 0.9. Estimated GFR was 87 mL per minute. His glucose was 146 and calcium was 8.2. Total bilirubin, AST, ALT, and alkaline phosphatase were normal. Total protein was 6.9 and albumin was 2.8. DISCHARGE MEDICATIONS: The patient will be discharged home to continue on carvedilol 25 mg once a day, omega-3 fatty acids 1 capsule twice a day, potassium chloride 20 mEq daily, triamterene/hydrochlorothiazide 37.5/25 one capsule once a day. He will be discharged also on Zyvox 600 mg twice a day for 5 days and clindamycin at 300 mg 4 times a day for 5 days. FINAL DISCHARGE DIAGNOSES: Cellulitis of the right upper extremity, hypokalemia, hypertension, and alcohol withdrawal. LESVIA TATUM MD DR: ZULLY/xenia JOB#: [id number] / [id number]
== END 2019-04-09 15:18 | disposition home or self-care (01) | DRG 603 ==
LOC: ER 04:49 → 1 SOUTH 08:42
PROVIDERS: ADMIT Internal Medicine; ATTEND Internal Medicine
DX: L03.113 Cellulitis of right upper limb (principal); E87.1 Hypo-osmolality and hyponatremia; F10.239 Alcohol dependence with withdrawal, unspecified; T63.391A Toxic effect of venom of other spider, accidental (unintentional), initial encounter; D69.6 Thrombocytopenia, unspecified; E78.5 Hyperlipidemia, unspecified; E87.6 Hypokalemia; I10 Essential (primary) hypertension; Z82.3 Family history of stroke; Y92.89 Other specified places as the place of occurrence of the external cause
CPT/HCPCS: 36415; 36569; 73201; 80048; 80053; 80202; 82550; 83605; 84132; 85025; 85027; 85651; 87040; 87493; 90471; 90715; 96361; 96365; 96366; J0696; J1200; J2020; J2060; J2405; J2543; J3370; J3480; J7040; J7050; J7120; Q9967; 99285-25; J7030

== ENCOUNTER → 2019-10-17 | Outpatient (CLI) | payer OTHER ==
[~2019-10-17] MED LIST: CARV25TA2 PO; OMEG-117 PO; POTA20TA4 PO; TRIA1CAP PO
== END | disposition home or self-care (01) ==
LOC: LAB 13:59
PROVIDERS: ATTEND Internal Medicine Cardiovascular Disease
DX: Z20.828 Contact with and (suspected) exposure to other viral communicable diseases (principal)
CPT/HCPCS: C9803; U0003; 36415

== ENCOUNTER → 2019-10-24 | Outpatient (CLI) | payer OTHER | END | disposition home or self-care (01) | LOC: LAB 09:15 | PROVIDERS: ATTEND Internal Medicine Cardiovascular Disease | DX: Z20.828 Contact with and (suspected) exposure to other viral communicable diseases (principal) | CPT/HCPCS: C9803; U0003; 36415 ==

== ENCOUNTER → 2020-10-07 | Outpatient (CLI) | payer OTHER ==
[2020-10-07 07:29] LABS: BASO # 0.1 x10^3/uL (0.0-0.2); BASO % 1 % (0-3); EOS # 0.2 x10^3/uL (0.0-0.7); EOS % 3 % (0-3); HEMATOCRIT 42.3 % (39.0-53.0); HEMOGLOBIN 14.9 g/dL (13.0-17.5); LYMPH # 1.1 x10^3/uL (1.0-4.8); LYMPH % 19 % (24-48); MEAN CORPUSCULAR HEMOGLOBIN 32 pg (25-35); MEAN CORPUSCULAR HGB CONC 35 g/dL (31-37); MEAN CORPUSCULAR VOLUME 91 fL (79-100); MONO # 0.8 x10^3/uL (0.0-1.1); MONO % 14 % (0-9); NEUT # 3.8 x10^3uL (1.8-7.7); NEUT % 64 % (31-73); PLATELET COUNT 193 x10^3/uL (140-400); RED BLOOD COUNT 4.64 x10^6/uL (4.30-5.70); WHITE BLOOD COUNT 5.9 x10^3/uL (4.0-11.0)
[2020-10-07 09:14] LABS: ALBUMIN 4.4 g/dL (3.4-5.0); ALBUMIN/GLOBULIN RATIO 1.3 (1.0-1.7); CALCIUM 8.9 mg/dL (8.5-10.1); CREATININE 0.7 mg/dL (0.7-1.3); GFR 115.4; POTASSIUM 3.7 mmol/L (3.5-5.1); TOTAL BILIRUBIN 0.5 mg/dL (0.2-1.0); TOTAL PROTEIN 7.9 g/dL (6.4-8.2)
[2020-10-07 22:09] LABS: HEMOGLOBIN A1C 5.6 % (4.8-5.6)
== END ==
LOC: LAB 07:05
PROVIDERS: ATTEND Specialist
DX: Z12.5 Encounter for screening for malignant neoplasm of prostate (principal); I10 Essential (primary) hypertension; R73.01 Impaired fasting glucose; E78.2 Mixed hyperlipidemia
CPT/HCPCS: 36415; 80053; 80061; 83036; 85025; G0103

== ENCOUNTER → 2021-01-06 | Outpatient (CLI) | payer OTHER ==
[~2021-01-06] MED LIST changes: +POTA-121 PO; -POTA20TA4 PO
--- NOTE | 2021-01-07 11:29 | RAD ---
MR#: [id number] Date of Study: 01/06/2021 Ordering Physician: SAM DIOP, Referring Physician: ANAYA SOLO Tech: RT Dany (R) (N) APPROVED REPORT Test Type: Exercise Stress Nurse/Tech: Cole / Roslyn Test Indications: HOFFMAN Cardiac History: No known cardiac Medications: See EHR Medical History: See EHR Resting Heart Rate: 93 bpm Resting Blood Pressure: 155/73mmHg Pretest Chest Pain: None Stress Symptoms Dyspnea POST EXERCISE Target HR: 136 Max HR: 169 bpm 124% of Maximum Predicted HR: 136 bpm Exercise duration: 7:04 min:sec, 3 Stage Exercise capacity: 10.0 (7.6) 131%METs Max Blood Pressure: 208/90mmHg Blood Pressure response to exercise: Normal blood pressure response during stress. Heart Rate response to exercise: Increased Chest Pain: No. Arrhythmia: No. ST Change: No. INTERPRETATION Stress EKG Conclusion: No evidence of stress induced EKG changes Imaging Protocol IMAGE PROTOCOL: Rest Tc-99m/stress Tc-99m 1 day Rest: Stress: Viability: Radiopharm.Tc99m [id number] Sestamibi Dose10.5mCi 33mCi Duration 15min. 15min. Img Date 01/06/2021 01/06/2021 Inj-Img [id number]. 60min. Rest Admin Site:IV - Right AntecubitalAdministrator: RT Dany (R)(N) Stress Admin Site: IV - Right AntecubitalAdministrator: RT Dany (R)(N) STRESS DATA End Diast. Vol.121.0mlAv. Heart Rate87.0bpm End Syst. Vol.31.0mlCO Index BSA0.0L/min Myocardial Gplp191.0gEject. Flbnjlxk96.0% Stress Rates Pk. Fill Rate4.46EDV/secLVtime Pk. Fill 172.80msec Pk. Empty Rate4.74ESV/secLVtime Pk. Zfvwr927.33msec 1/3 Pk. Fill1.39EDV/sec Stress Scores Regional WT0.00Summed WT0.00 Regional WM0.00Summed WM0.00 The rest and stress images show normal perfusion, normal contraction and thickening. LV Perf. Quant 17 Seg. SSS0.00 17 Seg. SRS4.00 17 Seg. SDS0.00 Stress Defect Extent (% LAD)0.00Rest Defect Extent (% LAD)0.00Rev. Defect Extent (% LAD)0.00 Stress Defect Extent (% LCX) 0.00Rest Defect Extent (% LCX)15.00Rev. Defect Extent (% LCX)0.00 Stress Defect Extent (% RCA)0.00Rest Defect Extent (% RCA)0.00Rev. Defect Extent (% RCA)0.00 Stress Defect Extent (% TAMARA)0.00Rest Defect Extent (% TAMARA)2.60Rev. Defect Extent (% TAMARA)0.00 Other Information Quality:Average Risk Assessment: Low Risk Conclusion 1. No evidence of EKG changes with stress testing. 2. Normal perfusion at stress/rest. 3. Low risk study. 4. EF > 60%. Signed by : Bashir Padilla, Electronically Approved : 01/07/2021 11:28:50
== END ==
LOC: NM 08:33
PROVIDERS: ATTEND Internal Medicine Cardiovascular Disease
DX: R06.09 Other forms of dyspnea (principal)
CPT/HCPCS: 78452; 93017; A9500; 96376

== ENCOUNTER 2021-05-27 13:54 | Emergency (ER) | payer OTHER ==
[~2021-05-27] VITALS: Ht 180.3 cm; Wt 90.9 kg
[2021-05-27 14:02] VITALS: BP 199/100
--- NOTE | 2021-05-27 15:26 | PHYS DOC ---
Past History Past Medical History: Hypertension (MORENITA RUBALCAVA APRN) Past Surgical History: Other Additional Past Surgical Histo: BACK SURGERY 2016 (MORENITA RUBALCAVA APRN) Alcohol Use: Heavy Drug Use: None (MORENITA RUBALCAVA APRN) General Adult EDM: Chief Complaint: EARACHE/EAR PAIN HPI: HPI: Patient is a 61-year-old male who presents with right ear pain. Patient states his ear has been giving twinges of pain since yesterday. "I feel like part of my hearing aid may have come off in my ear canal". Denies taking anything for pain. Denies fever or recent illness. (MORENITA RUBALCAVA APRN) Review of Systems: Review of Systems: ROS At least 10 ROS systems have been reviewed and are negative except as documented in the HPI. General: Negative except as outlined in HPI above. Skin: Negative except as outlined in HPI above. HEENT: Negative except as outlined in HPI above. Neck: Negative except as outlined in HPI above. Respiratory: Negative except as outlined in HPI above.. Cardiovascular: Negative except as outlined in HPI above. Abdomen: Negative except as outlined in HPI above. : Negative except as outlined in HPI above. Back/MSK: Negative except as outlined in HPI above. Neuro: Negative except as outlined in HPI above. Psych: Negative except as outlined in HPI above. (MORENITA RUBALCAVA APRN) Allergies: Allergies: Allergies Coded Allergies Type Severity Reaction Last Updated Verified No Known Drug Allergies 04/04/19 No (MORENITA RUBALCAVA APRN) Physical Exam: PE: Constitutional: Well developed, well nourished, no acute distress, non-toxic appearance. [] HENT: Normocephalic, atraumatic, bilateral external ears normal, cerumen built up-right ear, oropharynx moist Eyes: PERRLA, EOMI, conjunctiva normal, no discharge. [] Neck: Normal range of motion, no tenderness, supple, no stridor. [] Cardiovascular:Heart rate regular rhythm, no murmur [] Lungs & Thorax: Bilateral breath sounds clear to auscultation [] (MORENITA RUBALCAVA APRN) Current Patient Data: Vital Signs: Vital Signs Date Time Temp Pulse Resp B/P (MAP) Pulse Ox O2 Delivery O2 Flow Rate FiO2 05/27/21 14:02 98.1 97 16 199/100 (133) 100 Room Air (MORENITA RUBALCAVA APRN) EKG: EKG: [] (MORENITA RUBALCAVA APRN) Radiology/Procedures: Radiology/Procedures: [] (MORENITA RUBALCAVA APRN) Heart Score: C/O Chest Pain: No Risk Factors: Risk Factors: DM, Current or recent (<one month) smoker, HTN, HLP, family history of CAD, obesity. Risk Scores: Score 0 - 3: 2.5% MACE over next 6 weeks - Discharge Home Score 4 - 6: 20.3% MACE over next 6 weeks - Admit for Clinical Observation Score 7 - 10: 72.7% MACE over next 6 weeks - Early Invasive Strategies (MORENITA RUBALCAVA APRN) Course & Med Decision Making: Course & Med Decision Making Pertinent Labs and Imaging studies reviewed. (See chart for details) [] 7-year-old male presents with right ear pain since yesterday. Afebrile. TM is pearly johnson in color, no bulging or redness seen. Cerumen seen. No impaction. Advised patient to use Debrox and follow-up with PCP for further management. Patient is appreciative and okay with plan. (MORENITA RUBALCAVA APRN) Dragon Disclaimer: Dragon Disclaimer: This electronic medical record was generated, in whole or in part, using a voice recognition dictation system. (MORENITA RUBALCAVA APRN) Attending Co-Sign The patient was seen and interviewed as well as examined at the bedside. The chart was reviewed. The case was discussed. Agree with the plan of care. (ADILENE FARLEY DO) Departure Departure: Impression: Primary Impression: Ear pain, right Disposition: 01 HOME / SELF CARE / HOMELESS Condition: STABLE Referrals: MYRON ALVAREZ MD (PCP) Patient Instructions: Otalgia Additional Instructions: You were seen in the emergency room for right-sided ear pain. No infection seen. Ibuprofen at home for discomfort. You can buy uxzc-run-ndutlsz Debrox to soften the wax in your ear. Please follow-up with your PCP for further management if pain does not resolve. Return emergency room with worsening symptoms or concerns. EMERGENCY DEPARTMENT GENERAL DISCHARGE INSTRUCTIONS Thank you for coming to [facility] (ED) today and trusting us with you care. We trust that you had a positivie experience in our Emergency Department. If you wish to speak to the department management, you may call the director at [phone]. YOUR FOLLOW UP INSTRUCTIONS ARE FOLLOWS: 1. Do you have a private Doctor? If you do not have a private doctor, please ask for a resource list of physicians or clinics that may be able to assist you with follow up care. 2. The Emergency Physician has interpreted your x-rays. The X-Ray specialist will also review them. If there is a change in the findings, you will be notified in 48 hours when at all possible. 3. A lab test or culture has been done, your results will be reviewed and you will be notified if you need a change in treatment. ADDITIONAL INSTRUCTIONS AND INFORMATION: 1. Your care today has been supervised by a physician who is specially trained in emergency care. Many problems require more than one evaluation for a complete diagnosis and treatment. We recommend that you schedule your follow up appointment as recommended to ensure complete treatment of you illness or injury. If you are unable to obtain follow up care and continue to have a problem, or if your condition worsens, we recommend that you return to the ED. 2. We are not able to safely determine your condition over the phone nor are we able to give sound medical advice over the phone. For these safety reasons, if you call for medical advice we will ask you to come to the ED for further evaluation. 3. If you have any questions regarding these discharge instructions please call the ED at [phone]. SAFETY INFORMATION: In the interest of safety, wellness, and injury prevention; we encourage you to wear your sealbelt, if you smoke; quite smoking, and we encourage family to use a protective helmet for bicycling and other sporting events that present an increased risk for head injury. IF YOUR SYMPTOMS WORSEN OR NEW SYMPTOMS DEVELOP, OR YOU HAVE CONCERNS ABOUT YOUR CONDITION; OR IF YOUR CONDITION WORSENS WHILE YOU ARE WAITING FOR YOUR FOLLOW UP APPOINTMENT; EITHER CONTACT YOUR PRIMARY CARE DOCTOR, THE PHYSICIAN WHOSE NAME AND NUMBER YOU WERE GIVEN, OR RETURN TO THE ED IMMEDIATELY. MORENITA RUBALCAVA APRN May 27, 2021 15:26 ADILENE FARLEY DO May 28, 2021 19:50
== END 2021-05-27 15:35 | disposition home or self-care (01) ==
LOC: ER 13:54
DX: H92.01 Otalgia, right ear (principal); I10 Essential (primary) hypertension; F10.20 Alcohol dependence, uncomplicated; Y90.9 Presence of alcohol in blood, level not specified
CPT/HCPCS: 99282

== ENCOUNTER 2021-06-05 08:45 | Emergency (ER) | payer OTHER ==
[~2021-06-05] VITALS: Ht 177.8 cm; Wt 93.0 kg
[2021-06-05] MEDS ORDERED: AMOX1TAB11 PO (09:19)
--- NOTE | 2021-06-05 09:19 | PHYS DOC ---
Past History Past Medical History: Hypertension Past Surgical History: No Surgical History Additional Past Surgical Histo: BACK SURGERY 2016 Alcohol Use: Occasionally Drug Use: None General Adult EDM: Chief Complaint: EARACHE/EAR PAIN HPI: HPI: 61-year-old male presents with right ear pain. The patient has been having some ear discomfort for a few days. Yesterday it seemed to "pop" a few times. His hearing is decreased on the right side despite his hearing aid use. He has been trying to do wax removal irrigation without success. Since last night, the patient has had a dull aching pain in the ear and decided come in for evaluation. No fever or chills at home. Review of Systems: Review of Systems: Constitutional: Denies fever or chills Eyes: Denies change in visual acuity HENT: Right ear pain Respiratory: Denies cough or shortness of breath Cardiovascular: Denies chest pain or edema GI: Denies abdominal pain, nausea, vomiting, bloody stools or diarrhea : Denies dysuria Musculoskeletal: Denies back pain or joint pain Integument: Denies rash Neurologic: Denies headache, focal weakness or sensory changes Endocrine: Denies polyuria or polydipsia Lymphatic: Denies swollen glands Psychiatric: Denies depression or anxiety Allergies: Allergies: Allergies Coded Allergies Type Severity Reaction Last Updated Verified No Known Drug Allergies 06/05/21 No Physical Exam: PE: Constitutional: Well developed, well nourished, no acute distress, non-toxic appearance. [] HENT: Normocephalic, atraumatic, bilateral external ears normal, oropharynx moist, no oral exudates, nose normal. Left tympanic membrane normal. Right tympanic membrane partially obscured by wax but erythematous. [] Eyes: PERRLA, EOMI, conjunctiva normal, no discharge. [] Neck: Normal range of motion, no tenderness, supple, no stridor. [] Cardiovascular: Heart rate regular rhythm, no murmur [] Lungs & Thorax: Bilateral breath sounds clear to auscultation [] Abdomen: Bowel sounds normal, soft, no tenderness, no masses, no pulsatile ma sses. [] Skin: Warm, dry, no erythema, no rash. [] Back: No tenderness, no CVA tenderness. [] Extremities: No tenderness, no cyanosis, no clubbing, ROM intact, no edema. [] Neurologic: Alert and oriented X 3, normal motor function, normal sensory function, no focal deficits noted. [] Psychologic: Affect normal, judgement normal, mood normal. [] Current Patient Data: Vital Signs: Vital Signs Date Time Temp Pulse Resp B/P (MAP) Pulse Ox O2 Delivery O2 Flow Rate FiO2 06/05/21 09:03 97.8 95 20 180/97 (124) 97 Room Air EKG: EKG: [] Radiology/Procedures: Radiology/Procedures: [] Heart Score: C/O Chest Pain: N/A Risk Factors: Risk Factors: DM, Current or recent (<one month) smoker, HTN, HLP, family history of CAD, obesity. Risk Scores: Score 0 - 3: 2.5% MACE over next 6 weeks - Discharge Home Score 4 - 6: 20.3% MACE over next 6 weeks - Admit for Clinical Observation Score 7 - 10: 72.7% MACE over next 6 weeks - Early Invasive Strategies Course & Med Decision Making: Course & Med Decision Making Pertinent Labs and Imaging studies reviewed. (See chart for details) The patient's exam is suspicious for ear infection but he also has wax that has been pushed deep on that side. I have advised that we will treat him with an antibiotic but he should also consult ENT for specialist removal of the wax based on its location. Patient states verbal understanding. He is stable for discharge at this time. [] Dragon Disclaimer: Dragon Disclaimer: This electronic medical record was generated, in whole or in part, using a voice recognition dictation system. Departure Departure: Impression: Primary Impression: Right otitis media Disposition: HOME / SELF CARE / HOMELESS Condition: STABLE Referrals: MYRON ALVAREZ MD (PCP) Patient Instructions: Otitis Media, Adult, Gkck-so-Xkbm Scripts Amoxicillin/Potassium Clav (AMOX TR-K CLV 875-125 MG TAB) 1 Each Tablet 1 TAB PO BID for ear infection for 10 Days, #20 TAB Prov: ADILENE FARLEY DO 06/05/21 ADILENE FARLEY DO Jun 05, 2021 09:19
[2021-06-05 09:29] VITALS: BP 174/87
== END 2021-06-05 09:25 | disposition home or self-care (01) ==
LOC: ER 08:45
DX: H66.91 Otitis media, unspecified, right ear (principal); I10 Essential (primary) hypertension
CPT/HCPCS: 99283

== ENCOUNTER → 2021-06-08 | Outpatient (CLI) | payer OTHER ==
[2021-06-05 09:29] VITALS: BP 174/87
[~2021-06-08] MED LIST changes: +AMOX1TAB11 PO
[2021-06-08 08:52] LABS: ALBUMIN 4.1 g/dL (3.4-5.0); ALBUMIN/GLOBULIN RATIO 1.2 (1.0-1.7); CALCIUM 8.4 mg/dL (8.5-10.1); CREATININE 0.6 mg/dL (0.7-1.3); GFR 137.4; POTASSIUM 3.9 mmol/L (3.5-5.1); TOTAL BILIRUBIN 0.4 mg/dL (0.2-1.0); TOTAL PROTEIN 7.5 g/dL (6.4-8.2)
[2021-06-08 09:01] LABS: BASO % 1 % (0-3); EOS # 0.1 x10^3/uL (0.0-0.7); EOS % 2 % (0-3); HEMATOCRIT 41.1 % (39.0-53.0); LYMPH # 1.2 x10^3/uL (1.0-4.8); LYMPH % 22 % (24-48); MEAN CORPUSCULAR HEMOGLOBIN 31 pg (25-35); MEAN CORPUSCULAR HGB CONC 34 g/dL (31-37); MEAN CORPUSCULAR VOLUME 91 fL (79-100); MONO # 0.8 x10^3/uL (0.0-1.1); MONO % 15 % (0-9); NEUT # 3.4 x10^3uL (1.8-7.7); NEUT % 60 % (31-73); PLATELET COUNT 164 x10^3/uL (140-400); RED BLOOD COUNT 4.52 x10^6/uL (4.30-5.70); RED CELL DISTRIBUTION WIDTH 12.9 % (11.5-14.5); WHITE BLOOD COUNT 5.6 x10^3/uL (4.0-11.0)
[2021-06-08 15:17] LABS: CHOLESTEROL/HDL RATIO 2.4
[2021-06-09 01:07] LABS: HEMOGLOBIN A1C 5.5 % (4.8-5.6)
== END ==
LOC: LAB 08:08
PROVIDERS: ATTEND Specialist
DX: Z12.5 Encounter for screening for malignant neoplasm of prostate (principal); I10 Essential (primary) hypertension; E78.2 Mixed hyperlipidemia; R73.01 Impaired fasting glucose
CPT/HCPCS: 36415; 80053; 80061; 83036; 85025; G0103

== ENCOUNTER 2021-08-03 13:53 | Emergency (ER) | payer OTHER ==
[~2021-08-03] VITALS: Ht 177.8 cm; Wt 93.0 kg
[2021-08-03 14:00] VITALS: BP 178/81
[2021-08-03] MEDS ORDERED: CIPR7.5D RIGHT EAR (14:49)
--- NOTE | 2021-08-03 14:53 | PHYS DOC ---
Past History Past Medical History: Hypertension Past Surgical History: No Surgical History Additional Past Surgical Histo: BACK SURGERY 2016 Alcohol Use: None Drug Use: None General Adult EDM: Chief Complaint: RINGING IN EARS HPI: HPI: 61-year-old male presents with right ear pain and drainage. Patient's been struggling with this ear for about 3 weeks. It started off as impacted cerumen but the patient feels like he has some kind of infection at this time. He has been trying to get into ENT but there is been complications with the referral. He presents today because he does not feel like he can hear out of that ear. He has gone through a round of oral antibiotics with no relief. He has had some whitish drainage from the ear. He denies fever or chills. Review of Systems: Review of Systems: Constitutional: Denies fever or chills Eyes: Denies change in visual acuity HENT: Painful right ear Respiratory: Denies cough or shortness of breath Cardiovascular: Denies chest pain or edema GI: Denies abdominal pain, nausea, vomiting, bloody stools or diarrhea : Denies dysuria Musculoskeletal: Denies back pain or joint pain Integument: Denies rash Neurologic: Denies headache, focal weakness or sensory changes Endocrine: Denies polyuria or polydipsia Lymphatic: Denies swollen glands Psychiatric: Denies depression or anxiety Allergies: Allergies: Allergies Coded Allergies Type Severity Reaction Last Updated Verified No Known Drug Allergies 06/05/21 No Physical Exam: PE: Constitutional: Well developed, well nourished, no acute distress, non-toxic appearance. [] HENT: Normocephalic, atraumatic, bilateral external ears normal, oropharynx moist, no oral exudates, nose normal. Left tympanic membrane normal. Right tympanic membrane erythematous, swollen with discharge consistent with otitis externa. [] Eyes: PERRLA, EOMI, conjunctiva normal, no discharge. [] Neck: Normal range of motion, no tenderness, supple, no stridor. [] Cardiovascular: Heart rate regular rhythm, no murmur [] Lungs & Thorax: Bilateral breath sounds clear to auscultation [] Abdomen: Bowel sounds normal, soft, no tenderness, no masses, no pulsatile masses. [] Skin: Warm, dry, no erythema, no rash. [] Back: No tenderness, no CVA tenderness. [] Extremities: No tenderness, no cyanosis, no clubbing, ROM intact, no edema. [] Neurologic: Alert and oriented X 3, normal motor function, normal sensory function, no focal deficits noted. [] Psychologic: Affect normal, judgement normal, mood normal. [] Current Patient Data: Vital Signs: Vital Signs Date Time Temp Pulse Resp B/P (MAP) Pulse Ox O2 Delivery O2 Flow Rate FiO2 08/03/21 14:00 99.3 85 16 178/81 (113) 98 EKG: EKG: [] Radiology/Procedures: Radiology/Procedures: [] Heart Score: C/O Chest Pain: N/A Risk Factors: Risk Factors: DM, Current or recent (<one month) smoker, HTN, HLP, family history of CAD, obesity. Risk Scores: Score 0 - 3: 2.5% MACE over next 6 weeks - Discharge Home Score 4 - 6: 20.3% MACE over next 6 weeks - Admit for Clinical Observation Score 7 - 10: 72.7% MACE over next 6 weeks - Early Invasive Strategies Course & Med Decision Making: Course & Med Decision Making Pertinent Labs and Imaging studies reviewed. (See chart for details) [] Dragon Disclaimer: Dragon Disclaimer: This electronic medical record was generated, in whole or in part, using a voice recognition dictation system. Departure Departure: Impression: Primary Impression: Otitis externa Qualified Codes: H60.311 - Diffuse otitis externa, right ear Disposition: HOME / SELF CARE / HOMELESS Condition: STABLE Referrals: MYRON ALVAREZ MD (PCP) Patient Instructions: Otitis Externa, [place] [facility] Ciprofloxacin Hcl/Dexameth (CIPRODEX OTIC SUSPENSION) 7.5 Ml Drops.susp 4 DROP RIGHT EAR BID for ear infection, #1 BOTTLE 1 Refill Prov: ADILENE FARLEY DO 08/03/21 ADILENE FARLEY DO August 03, 2021 14:53
== END 2021-08-03 14:55 | disposition home or self-care (01) ==
LOC: ER 13:53
DX: H60.311 Diffuse otitis externa, right ear (principal); I10 Essential (primary) hypertension
CPT/HCPCS: 99283